=== PATIENT | female | born 1945 | race Caucasian/White ===

== ENCOUNTER 2016-10-17 12:00 | Emergency (ER) | payer MEDICARE, BC ==
--- NOTE | 2016-10-17 13:05 | ER NURSING DOCUMENTATION ---
Nurse's Notes [facility] Name:Jessica Amaya Age:71 yrs Sex:Female :1945 Arrival Date:10/17/2016 Time:12:00 Bed6 Private MD:Maria Teresa Lazo Diagnosis:Abrasion Presentation: 10/17 12:05 Acuity: DANIELLA 3 lc 13:02 Presenting complaint: Patient states: Skin tear on left lake from a mechanical fall tg yesterday. Transition of care: patient was not received from another setting of care. 13:02 Method Of Arrival: Private Vehicle tg Triage Assessment: 12:31 General: Appears in no apparent distress, Behavior is cooperative. Pain: Complains of tg pain in left lake. Neuro: Level of Consciousness is awake, alert. Cardiovascular: Capillary refill < 3 seconds in left toes. Respiratory: Respiratory effort is even, unlabored. GI:. Musculoskeletal: Circulation, motion, and sensation intact Range of motion intact in all extremities. Injury Description: Skin tear skin tear on left lake from a fall yesterday. Skin around wound is reddened. Historical: - Allergies: Augmentin; Erythromycin; Amoxicillin; Iodinated Contrast Media - IV Dye; TETRACYCLINES; Sulfa (Sulfonamide Antibiotics); - Home Meds: 1. budesonide oral 2. gabapentin oral 3. levothyroxine oral 4. letrozole oral 5. losartan oral 6. meloxicam oral 7. Omeprazole Oral - PMHx: THYROID PROBLEM; sjrogens; LUPUS; breast CA; osteopenia; EMPHYSEMA; meningioma; FIBROMYALGIA; colitis; - PSHx: HYSTERECTOMY; MASTECTOMY; rotator cuff; - Tetanus: unknown will f/u with PCP. - Ebola Screening: : Patient negative for fever greater than or equal to 101.5 degrees Fahrenheit, and additional compatible Ebola Virus Disease symptoms. Patient denies exposure to infectious person. Patient denies travel to an Ebola-affected area in the 21 days before illness onset. No symptoms or risks identified at this time. . - Immunization history: Flu Vaccine unknown. - Social history: Smoking status: unknown if patient ever smoked tobacco. Screenin:42 Infectious Disease Risk Unable to Obtain. Abuse screen: Denies threats or abuse. Denies tg injuries from another. Nutritional screening: No deficits noted. Vital Signs: 12:15 BP 125 / 50; Pulse 68; Resp 16; Temp 98.2(O); Pulse Ox 90% on R/A; Pain 3/10; tg ED Course: 12:02 Patient arrived in ED. em3 12:05 Kareem Resendiz RN is Primary Nurse. tg 12:05 Triage completed. ching 12:11 Mari aTeresa Lazo MD is Private Physician. em3 12:31 Marv Mittal MD is Attending Physician. 12:41 Arm band placed on Bed in low position Call Light in Reach Gowned HOB Elevated Side tg rails up x1. 12:41 Wound care to skin tear located on left lake was Irrigation Normal Saline dressed with tg bacitracin 4X4s, Kerlix, Vaseline gauze, Patient tolerated well. 12:42 Jimmy Santos MD is Referral Physician. 13:00 Valuables Remains with patient. tg 10/18 11:48 Primary Nurse role handed off by Kareem Resendiz RN tg 11:48 [facility] is Referral Physician. tg Administered Medications: No medications were administered Outcome: 10/17 12:42 Discharge ordered by . 13:01 Discharged to home ambulatory. tg 13:01 Condition: stable 13:01 Discharge Assessment: Patient awake, alert and oriented x 3. No cognitive and/or functional deficits noted. Patient verbalized understanding of disposition instructions. 13:01 Instructed on discharge instructions, follow up and referral plans. medication usage. 13:04 Patient left the ED. tg 10/18 11:50 Patient left the ED. tg Signatures: Kareem Resendiz, Reyna Church RN, RN RN lc Meyer, John, MD MD jm Meiklejohn, Eric em3
--- NOTE | 2016-10-17 13:05 | ER PHYSICIAN DOCUMENTATION ---
Physician Documentation [facility] Name:Jessica Amaya Age:71 yrs Sex:Female :1945 Arrival Date:10/17/2016 Time:12:00 Bed6 Private MD:Maria Teresa Lazo ED, John Disposition: 10/17/16 12:42 Discharged to Home/Self Care. Impression: Abrasion. - Condition is Good. - Discharge Instructions: SKIN AVULSION. - Medical Reconciliation form form. - Follow up: Jimmy Santos MD; When: See Dr. Vijay Casarez nurse. ; Reason: Continuance of care, later this week. . Follow up: [facility]; When: Tomorrow; Reason: Continuance of care. - Problem is new. - Symptoms have improved. HPI: 10/17 12:30 This 71 yrs old Female presents to ER via Private Vehicle with complaints of jm Leg Injury - Left. 12:30 The patient presents with an injury, a laceration. The complaints affect the left lake. jm Onset: The symptom(s)/episode began/occurred yesterday, and became worse today. Treatment prior to arrival includes: no previous treatment. Pt tripped up the stairs and injured her lake yesterday. . Historical: - Allergies: Augmentin; Erythromycin; Amoxicillin; Iodinated Contrast Media - IV Dye; TETRACYCLINES; Sulfa (Sulfonamide Antibiotics); - Home Meds: 1. budesonide oral 2. gabapentin oral 3. levothyroxine oral 4. letrozole oral 5. losartan oral 6. meloxicam oral 7. Omeprazole Oral - PMHx: THYROID PROBLEM; sjrogens; LUPUS; breast CA; osteopenia; EMPHYSEMA; meningioma; FIBROMYALGIA; colitis; - PSHx: HYSTERECTOMY; MASTECTOMY; rotator cuff; - Tetanus: unknown will f/u with PCP. - Ebola Screening: : Patient negative for fever greater than or equal to 101.5 degrees Fahrenheit, and additional compatible Ebola Virus Disease symptoms. Patient denies exposure to infectious person. Patient denies travel to an Ebola-affected area in the 21 days before illness onset. No symptoms or risks identified at this time. . - Immunization history: Flu Vaccine unknown. - Social history: Smoking status: unknown if patient ever smoked tobacco. ROS: 12:30 MS/extremity: Positive for laceration, Negative for swelling. 12:30 Skin: Positive for laceration(s). Exam: 12:30 Constitutional: The patient appears alert, awake, comfortable. 12:30 Musculoskeletal/extremity: Extremities: grossly normal except: noted in the left lake- skin tear: laceration, ROM: intact in all extremities, Weight bearing: able to fully bear weight. 12:30 Neuro: Mentation: is normal, Memory: is normal. Vital Signs: 12:15 BP 125 / 50; Pulse 68; Resp 16; Temp 98.2(O); Pulse Ox 90% on R/A; Pain 3/10; tg MDM: 12:31 Patient medically screened. 16:07 Differential diagnosis: skin tear. Data reviewed: vital signs, nurses notes, and as a result, I will discharge patient. Counseling: I had a detailed discussion with the patient and/or guardian regarding: the historical points, exam findings, and any diagnostic results supporting the discharge/admit diagnosis, the need for outpatient follow up, Dr. Tom Casarez's RN. . Response to treatment: the patient's symptoms have mildly improved after treatment. ED course: 3cm skin tear repaired by ALDO Osorio. . 10/17 12:25 Order name: Wound Care; Complete Time: 13:03 tg Dispensed Medications: No medications were administered Signatures: Kareem Resendiz RN RN tg Marv Mittal MD MD
== END 2016-10-18 11:51 | disposition home or self-care (01) ==
LOC: ER 12:00
DX: S81.812A Laceration without foreign body, left lower leg, initial encounter (principal); W10.9XXA Fall (on) (from) unspecified stairs and steps, initial encounter; Y93.01 Activity, walking, marching and hiking; M32.9 Systemic lupus erythematosus, unspecified; Z85.3 Personal history of malignant neoplasm of breast; Z79.899 Other long term (current) drug therapy
CPT/HCPCS: 99283

== ENCOUNTER 2016-10-27 09:50 | Emergency (ER) | payer MEDICARE, BC ==
[2016-10-27 10:29] LABS: BASOPHILS 0.5 % (0.0-2.0); HEMATOCRIT 45.3 % (36.0-48.0); HEMOGLOBIN 15.2 g/dL (12.0-16.0); LYMPHOCYTES 22.5 % (20.0-40.0); MEAN CELL VOLUME 85.9 fL (80.0-100.0); MEAN CORPUS. HGB CONCENTRATION 33.5 g/dL (32.0-36.0); MEAN CORPUSCULAR HEMOGLOBIN 28.8 pg (29.0-35.0); MEAN PLATELET VOLUME 7.4 fL (7.4-10.4); MONOCYTES 10.9 % (2.0-10.0); NEUTROPHILS 66.1 % (54.0-75.0); NEUTROPHILS# 5.8 X 10^3uL (2.6-6.7); PLATELET COUNT 318 X 10^3uL (130-440); RED BLOOD COUNT 5.27 X 10^6uL (4.20-6.10); RED CELL DISTRIBUTION WIDTH 13.3 % (11.5-14.5); WHITE BLOOD COUNT 8.8 X 10^3uL (3.9-10.7)
[2016-10-27 10:32] LABS: ARTERIAL BLOOD GAS HCO3 25.2 mmol/L (22-26); ARTERIAL BLOOD GAS PCO2 52.8 mmHg (35-45)
[2016-10-27 10:33] LABS: LACTATE 0.39 mmol/L
[2016-10-27 10:39] LABS: URINE MUCUS NONE SEEN (Up to 25%); URINE RBC NONE SEEN (0-5/hpf); URINE SQUAMOUS EPITHELIAL CELL NONE SEEN (<= 15/hpf); URINE WBC NONE SEEN (0-4/hpf)
[2016-10-27 10:42] LABS: ALBUMIN 4.5 g/dL (3.5-5.0); ALKALINE PHOSPHATASE 76 U/L (38-126); ALT 41 U/L (9-52); AST 27 U/L (14-36); BILIRUBIN, DIRECT 0.1 mg/dL (0.0-0.4); BILIRUBIN, TOTAL 0.9 mg/dL (0.2-1.3); BLOOD UREA NITROGEN 16 mg/dL (7-17); CALCIUM 9.4 mg/dL (8.4-10.2); CHLORIDE 100 mmol/L (98-107); CREATININE 1.1 mg/dL (0.5-1.0); EST GLOMERULAR FILTRATION RATE 52 mL/min; GLUCOSE 96 mg/dL (70-100); LIPASE 68 U/L (23-300); POTASSIUM 3.9 mmol/L (3.5-5.1); SODIUM 142 mmol/L (137-145); TOTAL PROTEIN 7.8 g/dL (6.3-8.2)
[2016-10-27 11:01] LABS: TROPONIN I 0.397 ng/mL (0.00-0.034)
[2016-10-27] MEDS ORDERED: D5W IV ONE (12:14)
[2016-10-27] MEDS ORDERED: PIGGYBACK IV ONE (12:14)
[2016-10-27] MEDS ORDERED: CLINDAMYCIN IV ONE (12:14)
[2016-10-27 13:08] LABS: URINE APPEARANCE CLEAR; URINE BACTERIA NONE SEEN (<10/hpf); URINE BILIRUBIN NEGATIVE (NEGATIVE); URINE BLOOD NEGATIVE (NEGATIVE); URINE COLOR YELLOW; URINE GLUCOSE NORMAL (NEGATIVE); URINE KETONE NEGATIVE (NEGATIVE); URINE LEUKOCYTE ESTERASE NEGATIVE (NEGATIVE); URINE NITRITE NEGATIVE (NEGATIVE); URINE PH 5.5 (5-7); URINE PROTEIN NEGATIVE (NEG - TRACE); URINE SPECIFIC GRAVITY 1.015 (0.001-1.035); URINE UROBILINOGEN 0.2mg/dL (Normal) (NEG-1mg/dL)
--- NOTE | 2016-10-27 13:13 | ER PHYSICIAN DOCUMENTATION ---
Physician Documentation [facility] Name:Jessica Amaya Age:71 yrs Sex:Female :1945 Arrival Date:10/27/2016 Time:09:50 Bed4 Private MD:Maria Teresa Lazo ED Aurelio Montenegro Disposition: 10/27 12:55 Critical Care: not applicable. cd Disposition: 10/27/16 12:56 Transfer ordered to [facility]. Diagnosis are Hypoxia - : Due to Narcotic and Benzodiazapines, Myocardial Infarction - non ST elevation. - Reason for transfer: Higher level of care. - Accepting physician is Saad Luque MD, [facility] Hospitalist. - Condition is Fair. - Problem is new. - Symptoms have improved. COBRA Form completed? Yes Transfer - Mode of Transportation Ambulance HPI: 10:00 This 71 yrs old Female presents to ER via EMS with complaints of decreased cd responsiveness and Hypoxic episode. 10:00 The patient presents with decreased mental status, decreased responsiveness. Onset: The cd symptom(s)/episode began/occurred acutely, this morning. Possible causes: drug use, benzodiazepines, narcotics, The patient's reports she has an open wound on her left tibia that Dr. Santos is following. She has had a lot of pain with this wound and was placed on Oxycodone and Xanax for pain. Her last dose was at 04:30 AM of both ....this morning she was drowsy, with responsiveness. Her O2 sat was 62% on RA per the paramedics. She was placed on Oxygen at 4 liters/minute NC and it came up quickly to the high 90's. No Narcan was necessary. Upon her arrival, she was drowsy, easily arousable, oriented x 3 and without chest pain, SOB, cough, fever or chills. She was non-toxic appearing., low blood sugar, sepsis. Associated signs and symptoms: Pertinent positives: Pertinent negatives: abdominal pain, chest pain, combativeness, diaphoresis, diarrhea, headache, nausea, palpitations, shortness of breath, vomiting, weakness. Patient's baseline: Neuro: alert and fully oriented, Motor: no deficits, Ambulation: walks without assistance, Speech: normal. The patient has not experienced similar symptoms in the past. The patient has been recently seen by a physician: the patient's primary care provider, Dr. Tom THOMASON, a general surgeon, at a clinic, 2 day(s) ago, with different complaint(s), and apparently was diagnosed with Left LE open wound. Historical: - Allergies: Augmentin; Erythromycin; Amoxicillin; TETRACYCLINES; Sulfa (Sulfonamide Antibiotics); Iodinated Contrast Media - IV Dye; - Home Meds: 1. budesonide oral 2. gabapentin oral 3. levothyroxine oral 4. letrozole oral 5. losartan oral 6. meloxicam oral 7. Omeprazole Oral - PMHx: THYROID PROBLEM; LUPUS; breast CA; sjrogens; osteopenia; EMPHYSEMA; FIBROMYALGIA; meningioma; colitis; Abrasion (October 17, 2016); - PSHx: HYSTERECTOMY; MASTECTOMY; rotator cuff; - Tetanus: < 10 years. - Ebola Screening: : Patient negative for fever greater than or equal to 101.5 degrees Fahrenheit, and additional compatible Ebola Virus Disease symptoms. - Immunization history: Flu Vaccine < 1 year. - Social history: Smoking status: Patient states was never smoker of tobacco. ROS: 12:47 Eyes: Negative for injury, pain, redness, discharge, blurry vision and loss of vision. cd ENT: Negative for injury, pain, epistaxis and discharge. Neck: Negative for injury, pain, stiffness and swelling. 12:47 Cardiovascular: Negative for chest pain, palpitations, edema and pleuritic pain. cd 12:47 Abdomen/GI: Negative for abdominal pain, nausea, vomiting, diarrhea, constipation, distension, melena, hematochezia and hematemesis. 12:47 Constitutional: Positive for poor PO intake, Negative for chills, fever. 12:47 Respiratory: Negative for hemoptysis, pleurisy, shortness of breath, sputum production, wheezing. 12:47 Back: Positive for pain at rest. 12:47 MS/extremity: Positive for erythema, pain, warmth, of the left lake. 12:47 Skin: Positive for cellulitis, of the left lake. 12:47 Neuro: Positive for altered mental status, Negative for dizziness, headache, seizure activity, speech changes, syncope, visual changes. 12:47 All other systems are negative. Exam: Head/Face: Normocephalic, atraumatic. Eyes: Pupils equal round and reactive to light, extra-ocular motions intact. Lids and lashes normal. Conjunctiva and sclera are non-icteric and not injected. Cornea within normal limits. Periorbital areas with no swelling, redness, or edema. ENT: Nares patent. No nasal discharge, no septal abnormalities noted. Tympanic membranes are normal and external auditory canals are clear. Oropharynx with no redness, swelling, or masses, exudates, or evidence of obstruction, uvula midline. Mucous membranes dry Neck: Trachea midline, no thyromegaly or masses palpated, and no cervical lymphadenopathy. Supple, full range of motion without nuchal rigidity, or vertebral point tenderness. No Meningismus. Chest/axilla: Normal chest wall appearance and motion. Nontender with no deformity. No lesions are appreciated. Cardiovascular: Regular rate and rhythm with a normal S1 and S2. No gallops, murmurs, or rubs. Normal PMI, no JVD. No pulse deficits. Respiratory: Lungs have equal breath sounds bilaterally, clear to auscultation and percussion. No rales, rhonchi or wheezes noted. No increased work of breathing, no retractions or nasal flaring. Abdomen/GI: Soft, non-tender, with normal bowel sounds. No distension or tympany. No guarding or rebound. No evidence of tenderness throughout. Back: No spinal tenderness. No costovertebral tenderness. Full range of motion. 12:49 Skin: Warm, dry with normal turgor. Normal color with no rashes, no lesions. Patient cd has mild cellulitis about his left lake open wound 12:49 Constitutional: The patient appears alert, awake, non-diaphoretic, non-toxic, well developed, well nourished, listless, obese. 12:49 : CVA tenderness, is absent. 12:49 Neuro: Orientation: is normal, to person, place & time. Mentation: slow to respond, Memory: is normal, Cranial nerves: CN II- XII are normal as tested, Motor: moves all fours, Sensation: is normal. Vital Signs: 09:50 BP 103 / 51; Pulse 83; Resp 12; Temp 98.2; Pulse Ox 62% on R/A; Weight 61.23 kg; Height rh 5 ft. 0 in. (152.40 cm); Pain 5/10; 09:57 BP 103 / 51 (auto/); rh 10:18 Pulse 85; Resp 14; Pulse Ox 96% 3 lpm ; rh 10:50 BP 109 / 45; Pulse 75; Resp 15; Pulse Ox 99% on 3 lpm NC; Pain 0/10; rh 11:22 BP 126 / 59; Pulse 81; Resp 16; Pulse Ox 99% on 3 lpm NC; rh 12:35 BP 131 / 44; Pulse 79; Resp 15; Pulse Ox 98% on 3 lpm NC; Pain 0/10; rh 13:08 BP 122 / 48; Pulse 71; Resp 15; Pulse Ox 98% on 3 lpm NC; Pain 0/10; rh 09:50 Body Mass Index 26.36 (61.23 kg, 152.40 cm) rh [place] Coma Score: 12:49 Eye Response: spontaneous(4). Verbal Response: oriented(5). Motor Response: obeys cd commands(6). Total: 15. MDM: 10:06 Patient medically screened. cd 10:10 Differential Diagnosis: electrolyte abnormality, hypoglycemia, overdose, pneumonia, cd sepsis, UTI, volume depletion. 10:15 Data reviewed: vital signs, nurses notes, EMS record, old medical records, EKG, and as cd a result, I will continue to observe the patient, administer antibiotics Cleocin, administer IV fluids, NS bolus, NS maintenence. Data interpreted: Pulse oximetry: on room air 3L(s) per nasal cannula, is 98 %. Interpretation: normal. Plan: O2 by NC applied. 12:37 EKG attached lpr 12:53 Counseling: I had a detailed discussion with the patient and/or guardian regarding: the cd historical points, exam findings, and any diagnostic results supporting the discharge/admit diagnosis, lab results, radiology results, the need to transfer to another facility, for higher level of care, [facility] does not immediately have the required specialist. 12:54 ECG:. Physician consultation: Saad Luque MD was called at 12:36, was contacted at 12:40, cd regarding admission, to the floor, consult, patient's condition, need to evaluate the patient as soon as possible, and will see patient in inpatient room, shortly, later today, after a discussion of the case, a recommendation for transfer for higher level of care is made. 10/27 10:32 Order name: CBC AUTO DIF, MDIF/RMOR IF IND; Complete Time: 11:24 EDMS 10/27 12:51 Interpretation: Normal. 10/27 10:34 Order name: ARTERIAL BLOOD GAS; Complete Time: 11:24 [facility] [place] 10/27 12:51 Interpretation: Normal Except: ARTERIAL BLOOD GAS, pH ONLY 7.29; ARTERIAL BLOOD GAS cd PCO2 52.8. 10/27 10:34 Order name: LACTATE; Complete Time: 11:24 [facility] [place] 10/27 12:52 Interpretation: Normal. 10/27 10:47 Order name: DDIMER; Complete Time: 11:24 [facility] [place] 10/27 12:52 Interpretation: Normal. 10/27 10:55 Order name: BASIC METABOLIC PANEL; Complete Time: 11:24 [facility] [place] 10/27 12:52 Interpretation: Normal. 10/27 10:55 Order name: HEPATIC PANEL; Complete Time: 11:24 [facility] [place] 10/27 12:52 Interpretation: Normal. 10/27 10:55 Order name: LIPASE; Complete Time: 11:24 [facility] [place] 10/27 12:52 Interpretation: Normal. 10/27 10:55 Order name: BNP,NT-PRO; Complete Time: 11:24 [facility] [place] 10/27 12:52 Interpretation: Abnormal: BNP,NT-PRO 681. 10/27 10:55 Order name: TROPONIN I; Complete Time: 11:24 [facility] [place] 10/27 12:52 Interpretation: Abnormal: TROPONIN I 0.397; Elevated. 10/27 13:09 Order name: UA W/ MICRO -CULTURE IF IND [facility] [place] 10/27 13:42 Order name: WOUND CULTURE AND GRAM STAIN [facility] [place] 10/28 08:08 Order name: URINE CULTURE [facility] [place] 10/28 11:52 Order name: BLOOD CULTURE [facility] [place] 10/28 11:52 Order name: BLOOD CULTURE [facility] [place] 10/27 10:25 Order name: CHEST; SINGLE VIEW [id number] [facility] [place] 10/27 21:23 Order name: CHEST; S[place] [id number] [facility] [place] 10/27 10:07 Order name: I & O; Complete Time: 10:18 10/27 10:07 Order name: IV large bore X 2; Complete Time: 10:18 10/27 10:07 Order name: NPO; Complete Time: 10:18 10/27 10:07 Order name: Oxygen; Complete Time: 10: 10/27 10:07 Order name: Place Patient On Monitor; Complete Time: 10: cd 10/27 10:07 Order name: Pulse Ox Continuous; Complete Time: cd 10/27 10:37 Order name: Kelli; Complete Time: : EC:00 Rate is 77 beats/min. Rhythm is regular. QRS [place] is Normal. AR interval is normal. QRS cd interval is normal. QT interval is normal. No Q waves. T waves are Normal. No ST changes noted. Clinical impression: Normal ECG and No evidence of ischemia. Interpreted by me. Dispensed Medications: 10:00 Drug: NS 0.9% 1000 ml; Route: IV; Rate: bolus; Site: left antecubital; rh 10:42 Follow up: IV Status: Completed infusion; IV Intake: 1000ml rh 10:42 Drug: NS 0.9% 1000 ml; Route: IV; Rate: 250 ml/hr; Site: left antecubital; rh 13:07 Follow up: IV Status: Infusing continued upon transfer; IV Intake: 600ml lpr 12:10 Drug: Clindamycin 300 mg; Route: IVPB; Site: left antecubital; rh 12:35 Follow up: IV Status: Completed infusion; IV Intake: 50ml rh Signatures: Aurelio Dye MD MD cd Vera Berry RN RN lpr Elda Le
--- NOTE | 2016-10-27 13:13 | ER NURSING DOCUMENTATION ---
Nurse's Notes [facility] Name:Jessica Amaya Age:71 yrs Sex:Female :1945 Arrival Date:10/27/2016 Time:09:50 Bed4 Private MD:Maria Teresa Lazo Diagnosis:Hypoxia-: Due to Narcotic and Benzodiazapines;Myocardial Infarction - non ST elevation Presentation: 10/27 09:59 Acuity: DANIELLA 2 rh 10:11 Presenting complaint: states: noticed pt had an altered mental status rh and wasn't acting right, lethargic. PT is being treated by DR waters for a wound on the left lake. PT denies nausea, alert and oriented. Transition of care: Home. 10:11 Method Of Arrival: EMS: 410 rh Triage Assessment: 10:14 General: Appears in no apparent distress, Behavior is cooperative. Pain: Complains of rh pain in left lake. EENT: Oral mucosa is dry. Neuro: Level of Consciousness is alert, lethargic, Oriented to person, place, event, Opal Polisher are equal bilaterally Moves all extremities. Speech is normal, Pupils are PERRLA. Cardiovascular: Capillary refill < 3 seconds Chest pain is denied. Respiratory: Airway is patent Respiratory effort is even, unlabored, Respiratory pattern is regular, hypoventilation. GI: Abdomen is non- distended Abd is soft and non tender X 4 quads. Denies diarrhea, nausea, vomiting. : No deficits noted. Derm: Skin is intact, is healthy with good turgor, Skin is pink, warm & dry. Historical: - Allergies: Augmentin; Erythromycin; Amoxicillin; TETRACYCLINES; Sulfa (Sulfonamide Antibiotics); Iodinated Contrast Media - IV Dye; - Home Meds: 1. budesonide oral 2. gabapentin oral 3. levothyroxine oral 4. letrozole oral 5. losartan oral 6. meloxicam oral 7. Omeprazole Oral - PMHx: THYROID PROBLEM; LUPUS; breast CA; sjrogens; osteopenia; EMPHYSEMA; FIBROMYALGIA; meningioma; colitis; Abrasion (October 17, 2016); - PSHx: HYSTERECTOMY; MASTECTOMY; rotator cuff; - Tetanus: < 10 years. - Ebola Screening: : Patient negative for fever greater than or equal to 101.5 degrees Fahrenheit, and additional compatible Ebola Virus Disease symptoms. - Immunization history: Flu Vaccine < 1 year. - Social history: Smoking status: Patient states was never smoker of tobacco. Screenin:16 Infectious Disease Risk None. Abuse screen: Denies threats or abuse. Denies injuries rh from another. Nutritional screening: No deficits noted. Assessment: 10:16 See Triage Assessment done by same RN. rh Vital Signs: 09:50 BP 103 / 51; Pulse 83; Resp 12; Temp 98.2; Pulse Ox 62% on R/A; Weight 61.23 kg; Height rh 5 ft. 0 in. (152.40 cm); Pain 5/10; 09:57 BP 103 / 51 (auto/); rh 10:18 Pulse 85; Resp 14; Pulse Ox 96% 3 lpm ; rh 10:50 BP 109 / 45; Pulse 75; Resp 15; Pulse Ox 99% on 3 lpm NC; Pain 0/10; rh 11:22 BP 126 / 59; Pulse 81; Resp 16; Pulse Ox 99% on 3 lpm NC; rh 12:35 BP 131 / 44; Pulse 79; Resp 15; Pulse Ox 98% on 3 lpm NC; Pain 0/10; rh 13:08 BP 122 / 48; Pulse 71; Resp 15; Pulse Ox 98% on 3 lpm NC; Pain 0/10; rh 09:50 Body Mass Index 26.36 (61.23 kg, 152.40 cm) rh [place] Coma Score: 12:49 Eye Response: spontaneous(4). Verbal Response: oriented(5). Motor Response: obeys cd commands(6). Total: 15. ED Course: 09:50 Notified ED Physician of patient's arrival and chief complaint. Dr. Dye notified. rh 09:52 Patient arrived in ED. ds 09:52 Maria Teresa Lazo MD is Private Physician. ds 09:55 Oxygen Oxygen administration via nasal cannula @ 3L/min. rh 09:59 Triage completed. rh 10:00 monitoring analyst on. Pulse ox on. NIBP on. rh 10:04 Inserted peripheral IV: 20 gauge in left antecubital area and blood collected. Maintain rh field IV. Good blood return noted. Site clean & dry. Gauge & site: 18 G in the R AC. 10:06 Aurelio Dye MD is Attending Physician. cd 10:07 Elda Le is Primary Nurse. rh 10:16 Valuables Given to family. Patient has correct armband on for positive identification. rh Placed in gown. Bed in low position. Call light in reach. Side rails up X2. 10:25 CHEST; SINGLE VIEW [id number] In Process Unspecified. EDMS 10:34 Pereira cath inserted 16 Fr. Balloon inflated. To gravity drainage. Urine specimen rh collected. 10:35 Port Xray Completed. tt 10:56 EKG done. (by ED staff). Reviewed by Aurelio Dye MD. rh 11:12 Wound care to abrasion, located on left lake was cleaned with dressed with 4X4s, rh Kerlix Telfa. 11:14 Wound culture sent to lab. rh 12:37 EKG attached lpr Administered Medications: 10:00 Drug: NS 0.9% 1000 ml; Route: IV; Rate: bolus; Site: left antecubital; rh 10:42 Follow up: IV Status: Completed infusion; IV Intake: 1000ml rh 10:42 Drug: NS 0.9% 1000 ml; Route: IV; Rate: 250 ml/hr; Site: left antecubital; rh 13:07 Follow up: IV Status: Infusing continued upon transfer; IV Intake: 600ml lpr 12:10 Drug: Clindamycin 300 mg; Route: IVPB; Site: left antecubital; rh 12:35 Follow up: IV Status: Completed infusion; IV Intake: 50ml rh Intake: 10:42 IV: 1000ml; Total: 1000ml. rh 12:35 IV: 50ml; Total: 1050ml. rh 13:07 IV: 600ml; Total: 1650ml. lpr Output: 13:07 Urine: 650ml (Pereira); Total: 650ml. rh Outcome: 12:56 ER care complete, transfer ordered by . shaina 13:08 Transferred: Patient will be transferred to: [facility]. Facility rh Acceptance Time: October 27, 2016 at 12:30 Patient's face sheet was faxed to accepting facility. Face Sheet included patient's name, address, age, gender, contact information and insurance information. Patient will be transported by: [facility]. Report called to: Katlin Cosby RN at [facility] room 3308 Nurse and Physician Charting and Notes were sent to Accepting Facility. All tests and/or procedures with results, if applicable, were sent to accepting facility. 13:08 Condition: stable 13:08 Discharge instructions given to patient, family, Instructed on need for transfer 13:12 Patient left the ED. lpr Signatures: Dispatcher [employer] EDMS Carin Nowak, Aurelio Benedict MD MD cd Terriere, Tracy tt Roberts, Leslie, RN RN Elda Aranda
--- NOTE | 2016-10-27 14:31 | RADIOLOGY REPORT ---
A limited single portable view of the chest is compared with a prior film dated 02/12/2016. Examination demonstrates a limited degree of inspiration. Considering this the heart and vessels are unremarkable. The lung rincon are clear. No infiltrate, fluid or pneumothorax is seen. Stable elevation of the right hemidiaphragm is noted. IMPRESSION: Limited inspiration single portable view of the chest demonstrates no acute cardiopulmonary abnormality. MTDD
== END 2016-10-27 13:13 | disposition short-term general hospital (02) ==
LOC: ER 09:50
DX: R09.02 Hypoxemia (principal); T42.4X5A Adverse effect of benzodiazepines, initial encounter; T40.605A Adverse effect of unspecified narcotics, initial encounter; I21.4 Non-ST elevation (NSTEMI) myocardial infarction; L03.116 Cellulitis of left lower limb; R41.82 Altered mental status, unspecified; E86.0 Dehydration; R53.83 Other fatigue; M32.9 Systemic lupus erythematosus, unspecified; E03.9 Hypothyroidism, unspecified; Z79.899 Other long term (current) drug therapy; Z85.3 Personal history of malignant neoplasm of breast; Z99.89 Dependence on other enabling machines and devices; Z99.81 Dependence on supplemental oxygen; Z74.3 Need for continuous supervision
CPT/HCPCS: 51702; 71010; 80048; 80076; 81001; 82803; 83605; 83690; 83880; 84484; 85025; 85379; 87040; 87070; 87086; 87205; 93005; 93010; 96361; 96365; 99285; A0425; A0427

== ENCOUNTER 2016-11-09 09:29 | Emergency (ER) | payer MEDICARE, BC ==
--- NOTE | 2016-11-09 14:27 | ER NURSING DOCUMENTATION ---
Nurse's Notes [facility] Name:Jessica Amaya Age:71 yrs Sex:Female :1945 Arrival Date:11/09/2016 Time:09:29 Bed1 Private MD:Maria Teresa Lazo Diagnosis:Allergic Reaction Presentation: 11/09 09:33 Presenting complaint: Patient states: Drowsiness. lp 09:33 Acuity: DANIELLA 3 lp 10:33 Transition of care: Home. Onset: The symptoms/episode began/occurred yesterday. lp Anaphylaxis evaluation, no signs or symptoms of anaphylaxis were noted. 10:33 Method Of Arrival: Private Vehicle lp Triage Assessment: 10:29 General: Appears in no apparent distress, Behavior is drowsy. Pain: Complains of pain lp in left leg Pain currently is 4 out of 10 on a pain scale. EENT: No deficits noted. Neuro: Level of Consciousness is awake, Oriented to person, place, time, event, Speech is normal. Cardiovascular: No deficits noted. Capillary refill < 3 seconds. Respiratory: Airway is patent Trachea midline Respiratory effort is even, unlabored, Respiratory pattern is regular, symmetrical. GI: No deficits noted. : No deficits noted. Derm: No deficits noted. Historical: - Allergies: Erythromycin; Amoxicillin; Augmentin; Bactrim; - Home Meds: 1. budesonide 3 mg oral CECX 2 caps once daily 2. calcium citrate 760 mg calcium /3.5 gram oral gran 3. clotrimazole 1 % topical crea 4. calmoseptine 5. gabapentin 300 mg oral cap 1 cap 3 times per day 6. levothyroxine 100 mcg oral cap 1 cap once daily 7. letrozole 2.5 mg oral tab 8. losartan 50 mg oral tab 1 tab 2 times per day - PMHx: HYPOTHYROIDISM; sjogrens; sub cutaneous lupus; breast cancer; Osteopenia; radiation pneumonitis; EMPHYSEMA; meingioma; essential tremor; fibromyalgia; microscopic colitis; - PSHx: Hysterectomy; MASTECTOMY; rotator cuff; - Tetanus: < 10 years. - Ebola Screening: : Patient negative for fever greater than or equal to 101.5 degrees Fahrenheit, and additional compatible Ebola Virus Disease symptoms. Patient denies exposure to infectious person. Patient denies travel to an Ebola-affected area in the 21 days before illness onset. . - Immunization history: Pneumococcal vaccine is up to date, Flu Vaccine < 1 year. - Social history: Smoking status: Patient states was never smoker of tobacco. Screenin:32 Infectious Disease Risk None. Abuse screen: Denies threats or abuse. Denies injuries lp from another. Nutritional screening: No deficits noted. Assessment: 10:31 Respiratory: Airway is patent Breath sounds are clear bilaterally. lp Vital Signs: 09:42 BP 120 / 50; Pulse 73; Resp 14; Temp 98.2(O); Pulse Ox 85% on R/A; Weight 67.59 kg; lp Height 5 ft. 3 in. (160.02 cm); Pain 3/10; 09:42 Pulse Ox 92% on 2 lpm NC; lp 10:00 BP 129 / 48 (auto/); lp 10:02 Pulse Ox 97% ; lp 11:01 BP 139 / 47 (auto/); lp 11:02 Pulse Ox 97% ; lp 11:02 Pulse 65; lp 12:00 BP 133 / 52; Pulse 63; Pulse Ox 95% on 1 lpm NC; lpr 13:00 BP 123 / 48; Pulse 64; Pulse Ox 99% 1 lpm ; lpr 09:42 Body Mass Index 26.39 (67.59 kg, 160.02 cm) lp ED Course: 09:31 Patient arrived in ED. ds 09:31 Maria Teresa Lazo MD is Private Physician. ds 09:33 Rebekah Combs, RN is Primary Nurse. lp 09:33 Triage completed. lp 09:[address] Harrison notified. lp 10:00 Jimmy Harrison MD is Attending Physician. sc 10:32 Valuables Remains with patient Patient has correct armband on for positive lp identification. Placed in gown. Bed in low position. Call light in reach. Side rails up X2. Pulse Ox - RN Monitoring Only NIBP On - RN Monitoring Only. 14:08 Maria Teresa Lazo MD is Referral Physician. sc 14:14 UP TO COMMODE AND UA DONE, TOLERATED WELL. lc Administered Medications: No medications were administered Point of Care Testing: Urine Dip: 14:12 pH: 6.0; ; Specific [place]: 1.010; Ketones: Negative; Glucose: Negative; Protein: lc Negative; Leukocytes: Negative; Nitrite: Negative ; Blood: Negative; Bilirubin: Negative ; Urobilinogen: Normal Output: 14:14 Urine: 450ml (Voided); Total: 450ml. lc Outcome: 14:08 Discharge ordered by . sc 14:25 Patient left the ED. lpr 14:30 Discharged to home via wheelchair, with family. lpr 14:30 Condition: stable 14:30 Discharge instructions given to patient, family, Instructed on discharge instructions, follow up and referral plans. medication usage, Demonstrated understanding of instructions, medications. 11/10 10:31 Discharge F/U Call: Spoke with: patient. Have you filled your prescriptions? yes. lp Have you made a f/u appointment? yes Signatures: Reyan Fuentes, RN RN lc Rebekah Combs RN RN lp Srot, Carin, Reg Reg Jimmy Solano MD MD sc Roberts, Leslie, RN RN lpr
--- NOTE | 2016-11-09 14:27 | ER PHYSICIAN DOCUMENTATION ---
Physician Documentation [facility] Name:Jessica Amaya Age:71 yrs Sex:Female :1945 Arrival Date:11/09/2016 Time:09:29 Bed1 Private MD:Maria Teresa Lazo [email or web address] Disposition: 11/09/16 14:08 Discharged to Home/Self Care. Impression: Allergic Reaction. - Condition is Good. - Discharge Instructions: ALLERGIC REACTION, Other (General). - Medical Reconciliation form form. - Follow up: Maria Teresa Lazo MD; When: As needed; Reason: Recheck today's complaints. - Problem is new. - Symptoms have improved. HPI: 11/09 10:28 This 71 yrs old Female presents to ER with complaints of Allergic Reaction - sc medication reaction. 10:28 The patient presents with itching, rash. Onset: The symptom(s)/episode began/occurred 1 sc week(s) ago. Associated signs and symptoms: Pertinent positives: comes to ER very drowsy after benadryl early this am 50 mg and norco at 0800. seems associated with tylenol or tylenol pm as no new meds. Possible causes: At home the patient or guardian has treated the symptoms with Benadryl. The patient has experienced a previous episode, last week, and the symptoms today are exactly the same, after tramadol and xanax. Historical: - Allergies: Erythromycin; Amoxicillin; Augmentin; Bactrim; - Home Meds: 1. budesonide 3 mg oral CECX 2 caps once daily 2. calcium citrate 760 mg calcium /3.5 gram oral gran 3. clotrimazole 1 % topical crea 4. calmoseptine 5. gabapentin 300 mg oral cap 1 cap 3 times per day 6. levothyroxine 100 mcg oral cap 1 cap once daily 7. letrozole 2.5 mg oral tab 8. losartan 50 mg oral tab 1 tab 2 times per day - PMHx: HYPOTHYROIDISM; sjogrens; sub cutaneous lupus; breast cancer; Osteopenia; radiation pneumonitis; EMPHYSEMA; meingioma; essential tremor; fibromyalgia; microscopic colitis; - PSHx: Hysterectomy; MASTECTOMY; rotator cuff; - Tetanus: < 10 years. - Ebola Screening: : Patient negative for fever greater than or equal to 101.5 degrees Fahrenheit, and additional compatible Ebola Virus Disease symptoms. Patient denies exposure to infectious person. Patient denies travel to an Ebola-affected area in the 21 days before illness onset. . - Immunization history: Pneumococcal vaccine is up to date, Flu Vaccine < 1 year. - Social history: Smoking status: Patient states was never smoker of tobacco. ROS: 10:31 Constitutional: Negative for fever, chills, and weight loss. sc Eyes: Negative for injury, pain, redness, and discharge. ENT: Negative for injury, pain, and discharge. Neck: Negative for injury, pain, and swelling. Cardiovascular: Negative for chest pain, palpitations, and edema. Respiratory: Negative for shortness of breath, cough, wheezing, and pleuritic chest pain. Abdomen/GI: Negative for abdominal pain, nausea, vomiting, diarrhea, and constipation. Back: Negative for injury and pain. 10:31 Neuro: Negative for headache, weakness, numbness, tingling, and seizure. sc 10:31 Cardiovascular: Negative for chest pain. 10:31 Respiratory: Negative for shortness of breath. 10:31 Skin: Positive for rash. Exam: Head/Face: Normocephalic, atraumatic. Eyes: Pupils equal round and reactive to light, extra-ocular motions intact. Lids and lashes normal. Conjunctiva and sclera are non-icteric and not injected. Cornea within normal limits. Periorbital areas with no swelling, redness, or edema. ENT: Nares patent. No nasal discharge, no septal abnormalities noted. Tympanic membranes are normal and external auditory canals are clear. Oropharynx with no redness, swelling, or masses, exudates, or evidence of obstruction, uvula midline. Mucous membranes moist. Neck: Trachea midline, no thyromegaly or masses palpated, and no cervical lymphadenopathy. Supple, full range of motion without nuchal rigidity, or vertebral point tenderness. No meningismus. Chest/axilla: Normal chest wall appearance and motion. Nontender with no deformity. No lesions are appreciated. Cardiovascular: Regular rate and rhythm with a normal S1 and S2. No gallops, murmurs, or rubs. Normal PMI, no JVD. No pulse deficits. Abdomen/GI: Soft, non-tender, with normal bowel sounds. No distension or tympany. No guarding or rebound. No evidence of tenderness throughout. 10:31 Back: No spinal tenderness. No costovertebral tenderness. Full range of motion. sc 10:31 Constitutional: The patient appears in no acute distress, awake, lethargic. 10:31 Respiratory: the patient does not display signs of respiratory distress, Respirations: shallow respirations, that is mild, Breath sounds: are normal, clear throughout. 10:31 Skin: rash a mild rash is noted, rash can be described as urticarial. Vital Signs: 09:42 BP 120 / 50; Pulse 73; Resp 14; Temp 98.2(O); Pulse Ox 85% on R/A; Weight 67.59 kg; lp Height 5 ft. 3 in. (160.02 cm); Pain 3/10; 09:42 Pulse Ox 92% on 2 lpm NC; lp 10:00 BP 129 / 48 (auto/); lp 10:02 Pulse Ox 97% ; lp 11:01 BP 139 / 47 (auto/); lp 11:02 Pulse Ox 97% ; lp 11:02 Pulse 65; lp 12:00 BP 133 / 52; Pulse 63; Pulse Ox 95% on 1 lpm NC; lpr 13:00 BP 123 / 48; Pulse 64; Pulse Ox 99% 1 lpm ; lpr 09:42 Body Mass Index 26.39 (67.59 kg, 160.02 cm) lp MDM: 10:00 Patient medically screened. co 10:32 Differential diagnosis: anaphylaxis, angioedema, non IgE mediated drug reaction sc urticaria, medication side effect of severe drowsiness?. Data reviewed: vital signs, nurses notes, old medical records, and as a result, I will continue to observe the patient. 14:05 Physician consultation: Maria Teresa Lazo MD was called at 14:05, was contacted at 14:05, co regarding patient's condition, need to come to ED to see patient, and will see patient in ED, immediately. 14:09 ED course: Dr. Lazo sees patient in ED, feels drowsiness due to benadryl and makes pain sc mngmnt plan with pt and . Pt to use tagamet and claritin to avoid benadryl for allergic reaction itching.. Dispensed Medications: No medications were administered Point of Care Testing: Urine Dip: 14:12 pH: 6.0; ; Specific [place]: 1.010; Ketones: Negative; Glucose: Negative; Protein: lc Negative; Leukocytes: Negative; Nitrite: Negative ; Blood: Negative; Bilirubin: Negative ; Urobilinogen: Normal Signatures: Rebekah Combs RN RN lp Jimmy Harrison MD MD sc Roberts, Leslie, RN RN lpr
--- NOTE | 2016-11-09 22:19 | CONSULTATION ---
DATE OF CONSULTATION: 11/09/16 CORPORATE DEVELOPMENT OFFICER: Maria Teresa Lazo MD CHIEF COMPLAINT: Itching and sedation. HISTORY OF PRESENT ILLNESS: This is a 71-year-old female that was [facility] and found to have significant itching as well as decreased level of consciousness. She has a history of a non-healing wound of her left lower extremity which is being treated by Fiona Umana RN. She has been taking Tylenol 1800 mg at bedtime and 2 other daytime dosages which has been effective for management of her pain secondary to the wound. She takes [place] 1 tablet prior to her wound care dressings. She had a wound care dressing today and did take [place] prior to her appointment, RN. She states that she developed severe itching and faint erythematous rash of her back, shoulder, abdomen and bilateral lower extremities last night. They called the Emergency Room for recommendations regarding the itching and was advised to take Benadryl, She took Benadryl 25 mg 2 tablets at 12:15 a.m. today. She states that she took the [place] 1 tablet at 7:45 a.m. prior to her wound care appointment. She has not routinely taken the [place] except prior to wound care appointments given her hospitalization for oversedation from the narcotics and benzodiazepines. She states that her itching started 5 days ago and has gotten progressively worse. Her last dose of [place] prior to this morning was 5 days ago. She has never had a previous reaction to hydrocodone or narcotics in the past. She also has not had a prior reaction to Tylenol. Pain specialist Dr. Das, will be doing a nerve ablation of her cervical neck on 11/11/16. Therefore, she has been instructed not to take any nonsteroidal medication until after the procedure. She states that she is not currently having any pain of her wound or other joints at this time. She had tried Tramadol 50 mg as often as every 4 hours, approximately 1 week ago, but this was ineffective for her pain. When she arrived in the Emergency Room, she was very drowsy. She and her are concerned that the rash is related to Tylenol. She is not taking any new medications. REVIEW OF SYSTEMS: No fevers, chills or sweats. No cough. No sore throat. No ear pain. No chest pain. No shortness of breath. No abdominal pain. No nausea or vomiting. Her wound is appropriately healing. PAST MEDICAL HISTORY 1. Pulmonary fibrosis. 2. Right breast cancer. 3. Uterine cancer. 4. Nocturnal hypoxemia. 5. Hyperlipidemia. 6. Fibromyalgia. 7. Chronic pain syndrome. 8. Chronic venous insufficiency. 9. Nonhealing wound of left lower extremity. 10. Hypertension. 11. Osteoporosis. 12. Irritable bowel syndrome with diarrhea. 13. Depression. 14. Hypothyroidism. 15. Raynauds syndrome. 16. Pulmonary emphysema. 17. Gastroesophageal reflux disease. 18. Peripheral sensory neuropathy. 19. Hot flashes. 20. Radiation pneumonitis. 21. Lichen sclerosis. 22. Migraine variant. 23. Degenerative disk disease lumbar area. 24. Degenerative disk disease of cervical neck area. 25. Stress urinary incontinence. 26. Chronic allergic rhinitis. 27. Osteoarthritis, right knee. 28. Insomnia. 29. Anxiety. 30. Ataxia. 31. Carotid artery stenosis. 32. Essential tremor. 33. Hearing loss. 34. Cataracts. 35. Dry eyes. 36. History of Graves orbitopathy. PAST SURGICAL HISTORY 1. Status post total bilateral mastectomy secondary to right breast cancer, also with sentinel node biopsy. 2. Cataract extraction of the left. 3. Complete hysterectomy 1996 due to cervical carcinoma. 4. Status post right rotator cuff repair 06/2015. MEDICATIONS Gabapentin 300 mg at bedtime. Santyl ointment 3 times a week. Zofran 4 mg every 4 hours as needed for nausea. Venlafaxine ER 150 mg daily. Losartan 50 mg daily. Omeprazole 40 mg daily. Levothyroxine 100 mcg daily. Budesonide 3 mg daily. Vitamin D 1000 mg 2 tablets daily. Tylenol PM extra strength 1 tablet at bedtime. Ibuprofen 400 mg as needed for pain, this is currently being held. Calcium 600 mg daily. Acetaminophen for a total of 3000 mg daily. Letrozole 2.4 mg daily. Oxygen 1.5 liters at night and with deep water aerobics. ALLERGIES: Meloxicam (confusion), Doxycycline (itching and rash), Amoxicillin ( rash and itching) and Augmentin, Erythromycin (angioedema), sulfa (rash), Penicillin, tetracycline (rash), iodine and iodinated contrast. SOCIAL HISTORY: She is a retired in [employer] and [employer]. She is to Christophe. They have 1 adopted son Marlon. She has moderate alcohol use, about 12 ounces of wine per night. Former smoker and quit in 2005, smoked 1 pack per day for 40 years. No marijuana. PHYSICAL EXAMINATION VITAL SIGNS: Temperature 98.2, respiratory rate 14, pulse 73, blood pressure 120 /50. She is 85% on room air. She is 92-95% on 2 liters per nasal cannula. GENERAL: She is sleeping when I entered the room. She is somnolent throughout the exam but awakens appropriately. HEENT: Pupils are equal, round and reactive to light. Extraocular movements are intact. Her TMs are clear. Her nares are clear. Her oropharynx is clear. Mucous membranes are moist and intact. NECK: Her neck is supple with no jugular venous distention. No lymphadenopathy. No carotid bruits. LUNGS: Good aeration throughout and clear. HEART: Regular rate and rhythm without any murmurs, rubs or gallops. ABDOMEN: Soft, nontender, nondistended with good bowel sounds and no masses or hepatosplenomegaly. EXTREMITIES: Left lower extremity wound is covered with bandage which is not removed. She has no clubbing, cyanosis or edema. NEUROLOGIC: Alert with questioning but doses off easily. Cranial nerves 2-12 are grossly intact without focal deficits. Her motor, sensation and DTRs are intact. Her affect is appropriate. DATA: Urinalysis with specific gravity of 1.010. Negative. ASSESSMENT: Allergic reaction. Altered mental status secondary to medications. PLAN: I had a long discussion with patient and her in the room as well as with Emergency Room physician Dr. Jimmy Harrison and Emergency Room nursing staff. We discussed that it is rare to have an allergic reaction to Tylenol. It is more likely that she is having an allergic reaction to the hydrocodone. She does have a history of multiple allergies to multiple other medications. I suspect she has a high intolerance to medications in general. For now, she cannot use any nonsteroidal medications until after her nerve ablation in 2 days. She will continue to use her current dosage of Tylenol as this is effective for her pain. She will not use any [place] as she only uses this prior to procedures. Her next dressing change is not until 11/12/16. We discussed that she may need definitive skin testing to determine what she is reacting to. We have discussed that Benadryl 50 mg is a very large dose, and even though she took this more than 12 hours ago, I suspect that she is still having significant sedation related to the high doses of Benadryl as well as the [place] tablet this morning. I believe that her level of sedation is appropriate. I feel that she is safe to go home. I have recommended that she take Claritin 10 mg 2 tablets daily as well as Tagamet 400 mg daily to help with itching. She and her will discuss with Dr. Das when she can resume Ibuprofen or Aleve for control of her pain. MTDD
== END 2016-11-09 14:26 | disposition home or self-care (01) ==
LOC: ER 09:29
DX: L27.0 Generalized skin eruption due to drugs and medicaments taken internally (principal); T40.2X5A Adverse effect of other opioids, initial encounter; R41.82 Altered mental status, unspecified; R40.0 Somnolence; T45.0X5A Adverse effect of antiallergic and antiemetic drugs, initial encounter; E03.9 Hypothyroidism, unspecified; Z85.3 Personal history of malignant neoplasm of breast; Z79.899 Other long term (current) drug therapy
CPT/HCPCS: 99282; 99283